=== PATIENT | male | born 1990 | race Two or more races ===

== ENCOUNTER 2017-12-09 14:46 | Observation (INO) | payer BC ==
[~2017-12-09] VITALS: Ht 177.8 cm; Wt 137.2 kg
[2017-12-09] MEDS ORDERED: MAALOX/HYOSCYAMINE/LIDOCAINE 45 ML BTL PO ONE (15:30)
[2017-12-09] MEDS ORDERED: FAMOTIDINE 20 MG/2 ML IVP ONE (15:30)
[2017-12-09] MEDS ORDERED: SODIUM CHLORIDE FLUSH 10ML SYR IVF ONE ×2 (15:30→18:00)
[2017-12-09] MEDS ORDERED: MAALOX/HYOSCYAMINE/LIDOCAINE 45 ML BTL ONE (15:38)
[2017-12-09] MEDS ORDERED: FAMOTIDINE 20 MG/2 ML ONE (15:38)
[2017-12-09 15:48] LABS: BASOPHILS # (AUTO) 0.04 x10^3/uL (0-0.1); BASOPHILS % (AUTO) 0 % (0-1); EOSINOPHILS % (AUTO) 1 % (1-7); LYMPHOCYTES % (AUTO) 31 % (22-44); MD NO; MEAN CORPUSCULAR HEMOGLOBIN 29.6 pg (27.5-34.5); MEAN CORPUSCULAR HGB CONC 33.7 g/dL (33.2-36.2); MEAN CORPUSCULAR VOLUME 87.9 fL (81-97); MONOCYTES # (AUTO) 0.67 x10^3/uL (0.2-0.8); MONOCYTES % (AUTO) 6 % (2-9); NEUTROPHILS # (AUTO) 6.88 x10^3/uL (1.8-6.8); NEUTROPHILS % (AUTO) 62 % (42-75); PLATELET COUNT 257 x10^3/uL (130-400); RED BLOOD COUNT 5.41 x10^6/uL (4.38-5.82)
[2017-12-09 15:55] LABS: ALANINE AMINOTRANSFERASE 62 U/L (12-78); ALBUMIN 3.8 g/dL (3.4-5.0); ANION GAP 9 mmol/L (5-15); CHLORIDE 106 mmol/L (98-107); CREATININE 1.11 mg/dL (0.7-1.3)
[2017-12-09 15:59] LABS: ALKALINE PHOSPHATASE 89 U/L (45-117); BILIRUBIN,TOTAL 0.3 mg/dL (0.2-1.0); TOTAL PROTEIN 8.4 g/dL (6.4-8.2); TROPONIN I < 0.015 ng/mL (0.000-0.045)
[2017-12-09] MEDS ORDERED: SODIUM CHLORIDE 0.9% 1,000ML IVBOLUS ONE (18:00)
[2017-12-09] MEDS ORDERED: ONDANSETRON 2MG/ML, 2ML IVPush ONE (18:00)
[2017-12-09] MEDS ORDERED: MORPHINE SULFATE 4 MG/ML, 1ML IVPush PRN (18:00)
[2017-12-09] MEDS ORDERED: CEFOTETAN PMX 1GM/50ML 50 ML IV ONE (18:00)
[2017-12-09] MEDS ORDERED: MORPHINE SULFATE 4 MG/ML, 1ML ONE ×3 (18:03→23:36)
[2017-12-09] MEDS ORDERED: ONDANSETRON 2MG/ML, 2ML ONE ×2 (18:03→21:43)
[2017-12-09] MEDS ORDERED: CEFOTETAN PMX 1GM/50ML 50 ML ONE (18:03)
[2017-12-09] MEDS ORDERED: EPINEPHRINE 1 MG/ML, 1ML ONE (21:31)
[2017-12-09] MEDS ORDERED: BUPIVACAINE/PF 0.5% ONE (21:31)
[2017-12-09] MEDS ORDERED: FENTANYL PF 250 MCG/5ML ONE (21:38)
[2017-12-09] MEDS ORDERED: MIDAZOLAM 1 MG/ML, 2ML ONE (21:38)
[2017-12-09] MEDS ORDERED: PROPOFOL 10 MG/ML, 20ML ONE (21:43)
[2017-12-09] MEDS ORDERED: DEXAMETHASONE 4 MG/ML, 1ML ONE (21:43)
[2017-12-09] MEDS ORDERED: NEOSTIGMINE 1 MG/ML, 10ML ONE (21:43)
[2017-12-09] MEDS ORDERED: GLYCOPYRROLATE 0.2MG/1ML, 5ML ONE (21:43)
[2017-12-09] MEDS ORDERED: ROCURONIUM 10MG/ML,5ML ONE (21:43)
[2017-12-09] MEDS ORDERED: SUCCINYLCHOLINE 20 MG/ML, 10ML ONE (21:43)
[2017-12-09] MEDS ORDERED: ONDANSETRON ODT 8 MG PO PRN (22:00)
[2017-12-09] MEDS ORDERED: PROCHLORPERAZINE 5 MG/ML, 2ML IV PRN (22:00)
[2017-12-09] MEDS ORDERED: FENTANYL PF 100 MCG/2ML IV PRN (22:00)
[2017-12-09] MEDS ORDERED: OXYcodone 5 MG/5 ML ORAL.SOL UDC PO PRN (22:00)
[2017-12-09] MEDS ORDERED: ACETAMINOPHEN 325 MG TABLET PO PRN ×2 (22:00→23:00)
[2017-12-09] MEDS ORDERED: MEPERIDINE/PF 25MG/0.5ML IVPush PRN (22:00)
[2017-12-09] MEDS ORDERED: ONDANSETRON 2MG/ML, 2ML IV PRN (22:00)
[2017-12-09] MEDS ORDERED: SUGAMMADEX 200 MG/2 ML IVPush ONE (22:44)
[2017-12-09] MEDS ORDERED: PROMETHAZINE 25 MG/ML, 1ML IM PRN (23:00)
[2017-12-09] MEDS ORDERED: LABETALOL 5MG/ML, 20ML IVPush PRN (23:00)
[2017-12-09] MEDS ORDERED: ENALAPRILAT 1.25 MG/ML, 2ML IVPush PRN (23:00)
[2017-12-09] MEDS ORDERED: ONDANSETRON 2MG/ML, 2ML IVPush PRN (23:00)
[2017-12-09] MEDS ORDERED: morphine SULFATE 10 MG/ML, 1ML IVPush PRN (23:00)
[2017-12-09] MEDS ORDERED: OXYcodone 5 MG/5 ML ORAL.SOL UDC ONE (23:11)
[2017-12-09] MEDS: MORPHINE SULFATE 4 MG/ML, 1ML IVPush PRN ×2 (23:30→23:41)
[2017-12-10 00:12] VITALS: BP 124/75
[2017-12-10] MEDS: D5%-0.45NACL+KCL 20MEQ 1,000 ML IV SCH ×2 (00:33→06:43)
[2017-12-10 03:30] VITALS: BP 111/63
[2017-12-10] MEDS: OXYcodone/APAP 7.5/325MG TABLET PO PRN ×2 (04:32→08:48)
[2017-12-10 08:00] VITALS: BP 118/67
[2017-12-10] MEDS ORDERED: OXYC-306 PO (09:24)
[2017-12-10] MEDS ORDERED: ONDA4TAB7 PO (09:25)
== END 2017-12-10 10:00 | disposition home or self-care (01) ==
LOC: ED 17:27 → INTOOBSV 19:31 → EDIP 19:31 → 4NOR 23:56 → DCLOUNGE 12-10 09:45
PROVIDERS: ADMIT Surgery; ATTEND Surgery
DX: K80.62 Calculus of gallbladder and bile duct with acute cholecystitis without obstruction (principal); E66.01 Morbid (severe) obesity due to excess calories; K82.8 Other specified diseases of gallbladder
CPT/HCPCS: 36415; 47562; 71045; 76700; 80053; 83690; 84484; 85025; 88304; 93005; 96365; 96366; 96375; 99285; G0378; J0171; J0330; J1100; J2250; J2405; J2704; J2710; J3010; J3480; J3490; J7030